=== PATIENT | female | born 1985 | race African-American/Black ===

== ENCOUNTER 2019-06-13 14:48 | Emergency (ER) | payer SELFPAY ==
[~2019-06-13] VITALS: Ht 170.2 cm; Wt 65.0 kg
[~2019-06-13 14:48] MED LIST: LIDOcaine 1% W/epiNEPHrine 1:100,000 20ml vial ONE; NAPR-56 PO; NO HOME MEDS
[2019-06-13 14:52] VITALS: BP 145/91
[2019-06-13] MEDS ORDERED: TETanus/Pertussis (Acell)/Diphther VAC/PF (Tdap-Adult) 0.5ml syringe IM ONE (15:05)
[2019-06-13] MEDS ORDERED: LIDOcaine 1.5% w/epinephrine 1:200,000 5ml ampul IJ ONE (15:05)
--- NOTE | 2019-06-13 15:12 | NUR ---
PT REPORTS THAT SHE IS
[2019-06-13] MEDS ORDERED: SULF1TAB49 PO (15:32)
== END 2019-06-13 15:53 | disposition home or self-care (01) ==
LOC: ER 14:49
DX: L03.116 Cellulitis of left lower limb (principal); L02.612 Cutaneous abscess of left foot; F12.90 Cannabis use, unspecified, uncomplicated; F15.90 Other stimulant use, unspecified, uncomplicated; Z90.49 Acquired absence of other specified parts of digestive tract; Z86.14 Personal history of Methicillin resistant Staphylococcus aureus infection
CPT/HCPCS: 10060; 73630; 99283

== ENCOUNTER 2019-07-09 01:07 | Emergency (ER) | payer SELFPAY ==
[~2019-07-09] VITALS: Ht 170.2 cm; Wt 57.3 kg
[~2019-07-09 01:07] MED LIST changes: -LIDOcaine 1% W/epiNEPHrine 1:100,000 20ml vial ONE
[2019-07-09 01:22] VITALS: BP 138/79
[2019-07-09] MEDS ORDERED: CLIN-90 PO (02:00)
[2019-07-09] MEDS ORDERED: clindamycin 150mg capsule PO ONE (02:05)
== END 2019-07-09 02:11 | disposition home or self-care (01) ==
LOC: ER 01:08
DX: L03.116 Cellulitis of left lower limb (principal); F12.90 Cannabis use, unspecified, uncomplicated; F15.90 Other stimulant use, unspecified, uncomplicated; Z90.49 Acquired absence of other specified parts of digestive tract; Z86.14 Personal history of Methicillin resistant Staphylococcus aureus infection
CPT/HCPCS: 99283